=== PATIENT | female | born 1950 | race Caucasian/White ===

== ENCOUNTER → 2017-04-29 | Outpatient (CLI) | payer BC ==
[~2017-04-29] MED LIST: ASPEC81 PO; CLR10 PO; MULT-506 PO
--- NOTE | 2017-04-29 15:21 | DIAGNOSTIC IMAGING REPORT ---
AP STANDING VIEW OF BOTH KNEES; 3 VIEWS RIGHT KNEE CLINICAL HISTORY: Right knee pain. FINDINGS: An AP standing view of both knees with lateral, tunnel, and sunrise views of the right knee are compared to study dated 04/01/2011. The skeletal structures are osteopenic. No fracture is seen. There is only mild tricompartmental degenerative joint space narrowing. No osteochondral defect is seen on the tunnel image. There is no joint effusion. The overlying soft tissues are within normal limits. A 7 mm calcification is seen inferior and medial to the patella. This may represent a joint body. The overlying soft tissues are normal in appearance. Survey images of the left knee on the frontal view show no acute abnormality. IMPRESSION: 1. No acute bony abnormality is seen in the right knee. 2. Osteopenia and minimal degenerative change as above. 3. Question a small calcified joint body. Electronically signed by: Cruzito Nuñez M.D. 04/29/2017 3:20 PM Dictated Date/Time: 04/29/2017 3:13 PM
== END | disposition home or self-care (01) ==
LOC: C.RDSM 11:48
PROVIDERS: ATTEND Internal Medicine
DX: M25.561 Pain in right knee (principal); M85.861 Other specified disorders of bone density and structure, right lower leg

== ENCOUNTER → 2017-05-05 | Outpatient (CLI) | payer BC ==
--- NOTE | 2017-05-05 13:58 | DIAGNOSTIC IMAGING REPORT ---
LEFT KNEE 3 VIEWS CLINICAL HISTORY: Left knee pain. COMPARISON: Knee radiographs April 01, 2011. FINDINGS: Alignment of the left knee is anatomic. There is no fracture, suspicious lesion or joint effusion. There is mild narrowing of the lateral patellofemoral joint space. There is mild arthritis. IMPRESSION: 1. No acute fracture or joint effusion of the left knee. 2. Mild osteoarthritis of the left knee. Electronically signed by: Senthil Covarrubias M.D. 05/05/2017 1:56 PM Dictated Date/Time: 05/05/2017 1:54 PM
== END | disposition home or self-care (01) ==
LOC: C.RDSM 11:56
PROVIDERS: ATTEND Internal Medicine
DX: M25.562 Pain in left knee (principal)

== ENCOUNTER → 2017-05-06 | Outpatient (CLI) | payer BC ==
--- NOTE | 2017-05-06 15:25 | DIAGNOSTIC IMAGING REPORT ---
RIGHT LOWER EXT JOINT WITHOUT CLINICAL HISTORY: 66 years-old Female with chronic right knee pain with loose bodies noted on comparison radiographs. Patient also reports swelling without known injury. COMPARISON: Right knee radiographs 04/29/2017 TECHNIQUE: Multiplanar, multisequence MRI of the right knee was performed without intravenous contrast. FINDINGS: MENISCI: Multidirectional increased T2 signal involves the posterior horn and posterior junction medial meniscus compatible with complex tear with a dominant horizontal undersurface component, nicely seen on image 17 of the coronal T2 series. Mild irregularity extends into the superior articular surface of the medial meniscal body. There is blunting of the free at posterior horn medial meniscus. No displaced fragment or para meniscal cyst is identified. There is blunting of the free edge anterior horn lateral meniscus without discrete tear, displaced fragment or para meniscal cyst seen laterally. CRUCIATE LIGAMENTS: The anterior and posterior cruciate ligaments are normal in signal, morphology and course. COLLATERAL LIGAMENTS: The popliteus tendon, biceps femoris tendon, fibular collateral ligament and iliotibial band are intact. There is mild thickening with intermediate T2 signal involving the proximal fibers of the MCL compatible with grade 2 injury. EXTENSOR MECHANISM: The quadriceps and patellar tendons are intact. The medial and lateral patellar retinacula are intact.a note is made of a medial patellar plica is seen on image 9 of the axial PD series. KNEE JOINT: There is mild medial compartment joint space narrowing with mostly low-grade chondromalacia. Minimal joint space narrowing with low-grade chondromalacia involves the lateral compartment. There is mild low-grade chondral fissuring involving the patellofemoral joint. There is a 6 x 3 x 6 mm immediately T1 and low T2 signal structure superficial to the medial patellofemoral ligament likely correlates with the ossified body on comparison radiographs and is outside the joint space. No intra-articular loose body is identified. There is a small knee joint effusion. BONE MARROW: The bone marrow signal is age appropriate. No fracture, marrow edema, or marrow replacing process. SOFT TISSUES: Small Le's cyst is seen, 2.2 x 3.5 x 8.5 cm. IMPRESSION: 1. Mild tricompartmental osteoarthritis with complex tear of the medial meniscus posterior horn and posterior junction with dominant horizontal undersurface component. No displaced fragment or para meniscal cyst. 2. Mild blunting the free edge anterior horn lateral meniscus without discrete tear identified. 3. Grade 2 injury of the MCL. 4. 6 x 3 x 6 mm ovoid structure superficial to the medial patellofemoral ligament likely correlates with the ossified body seen on comparison radiographs and is outside the joint capsule. No intra-articular loose bodies are identified. The above report was generated using voice recognition software. It may contain grammatical, syntax or spelling errors. Electronically signed by: Skyler Rueda M.D. 05/06/2017 3:24 PM Dictated Date/Time: 05/06/2017 3:00 PM
== END | disposition home or self-care (01) ==
LOC: C.MRI 13:47
PROVIDERS: ATTEND Internal Medicine
DX: S83.231A Complex tear of medial meniscus, current injury, right knee, initial encounter (principal); X58.XXXA Exposure to other specified factors, initial encounter

== ENCOUNTER → 2017-11-27 | Day surgery (SDC) | payer BC ==
[2017-11-26 10:20] VITALS: Ht 149.9 cm; Wt 49.5 kg
[~2017-11-27] VITALS: Ht 149.9 cm; Wt 49.5 kg
[~2017-11-27] MED LIST changes: -ASPEC81 PO; +LIDOCAINE HCL 2% 2 ML VIAL (20MG/ML) ONE; +MISCCAP80 PO; -MULT-506 PO; +PHENYLEPHRINE 100MCG/ML 5ML SYR ONE; +PROPOFOL IV EMULSION 10 MG/ML 20 ML VIAL IV ONE; +SODIUM CHLORIDE 0.9% 500ML 500 ML IV ONE
--- NOTE | 2017-11-27 11:07 | Endo History and Physical ---
History & Physical Date of Service: Nov 27, 2017. Chief Complaint: Screening, bloating and abdominal pain Referring Physician: Venancio Zuluaga History of Present Illness Change in bowel habit, bloating and abdominal pain. Past Surgical History Hx Cardiac Surgery: No Hx Internal Defibrillator: No Hx Pacemaker: No Hx Abdominal Surgery: Yes (TUBAL LIGATION, SAUL) Hx of Implantable Prosthesis: No Hx Post-Op Nausea and Vomiting: No Hx Cancer Surgery: No Hx Thoracic Surgery: No Hx Orthopedic: No Hx Urinary Tract Surgery: No Family History None Social History Smoking Status: Never Smoker Hx Substance Use: No Hx Alcohol Use: Yes (OCCASIONALLY) Allergies Coded Allergies: Codeine (Verified Allergy, Unknown, NAUSEA/VOMITTING, 11/26/17) Iodinated Diagnostic Agents (Verified Allergy, Unknown, ANAPHYLAXIS, ) Iodine (Verified Allergy, Unknown, ANAPHYLAXIS, 11/26/17) Macrolides (Verified Allergy, Unknown, HIVES, 11/26/17) NUTS (Unverified Allergy, Unknown, FACIAL SWELLING WITH RAW NUTS, 11/26/17) Promethazine (Verified Allergy, Unknown, HALLUCINATION, 11/26/17) Quinolones (Verified Allergy, Unknown, ANAPHYLAXIS, 11/26/17) Sulfa Drugs (Verified Allergy, Unknown, HIVES, 11/26/17) Penicillins (Unverified Adverse Reaction, Unknown, SL SWELLING OF FACE, 11/26/17) Uncoded Allergies: SCALLOPS (Allergy, Unknown, ANAPHYLAXIS, 11/26/17) Current Medications Reported Home Medications Medications Dose Route/Sig Max Daily Dose Days Date Category Probiotic (Probiotic Product) 1 Cap Cap 1 Cap PO DAILY 11/26/17 Reported Claritin (Loratadine) 10 Mg Tab 10 Mg PO QAM 11/26/17 Reported Vital Signs Weight (Kilograms): 49.55 Height (Feet): 4 Height (Inches): 11 Date Time Temp Pulse Resp B/P (MAP) Pulse Ox O2 Delivery O2 Flow Rate FiO2 11/27/17 10:43 36.7 97 18 143/89 (107) 96 Room Air Physical Exam General Appearance: WD/WN, no apparent distress Respiratory/Chest: Auscultation: breath sounds normal, no wheezing Cardiovascular: Heart Auscultation: RRR, no murmurs Abdomen: Inspection & Palpation: soft, no tenderness, guarding & rebound Assessment and Plan Colonoscopy today.
--- NOTE | 2017-11-27 11:55 | GI REPORT ---
Procedure Date: 11/27/2017 11:11 AM Procedure: Colonoscopy Indications: Screening for colorectal malignant neoplasm, Incidental - Abdominal pain, Incidental - Change in bowel habits Medicines: Monitored Anesthesia Care Complications: No immediate complications. Estimated blood loss: None. Estimated Blood Loss: Estimated blood loss: none. Procedure: Pre-Anesthesia Assessment: - Prior to the procedure, a History and Physical was performed, and patient medications, allergies and sensitivities were reviewed. The patient's tolerance of previous anesthesia was reviewed. - ASA Grade Assessment: II - A patient with mild systemic disease. After I obtained informed consent, the scope was passed under direct vision. Throughout the procedure, the patient's blood pressure, pulse, and oxygen saturations were monitored continuously. The scope was introduced through the anus and advanced to the terminal ileum, with identification of the appendiceal orifice and IC valve. The colonoscopy was performed with ease. The patient tolerated the procedure well. The quality of the bowel preparation was excellent. The bowel preparation used was split dose MIralax. Findings: The colon (entire examined portion) appeared normal. Biopsies for histology were taken with a cold forceps from the entire colon for evaluation of microscopic colitis. Fluid aspiration for bacterial cultures, Clostridium difficile and ova and parasites was performed. Verification of patient identification for the specimens was done by the physician and nurse using the patient's name, date and medical record number. Impression: - The entire examined colon is normal to the terminal ileum with retroflexed views of the ascending colon and rectum. Biopsied. Fluid aspiration performed. Recommendation: - Await pathology results. - Discharge patient to home (with escort). - Repeat colonoscopy in 10 years for screening purposes. Juan Antonio Qiu M.D. Juan Antonio Qiu MD 11/27/2017 11:55:07 AM This report has been signed electronically. Note Initiated On: 11/27/2017 11:11 AM I attest to the content of the Intraoperative Record and orders documented therein, exceptions below
--- NOTE | 2017-11-27 11:56 | Discharge Instructions ---
Endoscopy Patient Instructions Date / Procedure(s) Performed Nov 27, 2017. Colonoscopy Allergy Information Coded Allergies: Codeine (Verified Allergy, Unknown, NAUSEA/VOMITTING, 11/26/17) Iodinated Diagnostic Agents (Verified Allergy, Unknown, ANAPHYLAXIS, ) Iodine (Verified Allergy, Unknown, ANAPHYLAXIS, 11/26/17) Macrolides (Verified Allergy, Unknown, HIVES, 11/26/17) NUTS (Unverified Allergy, Unknown, FACIAL SWELLING WITH RAW NUTS, 11/26/17) Promethazine (Verified Allergy, Unknown, HALLUCINATION, 11/26/17) Quinolones (Verified Allergy, Unknown, ANAPHYLAXIS, 11/26/17) Sulfa Drugs (Verified Allergy, Unknown, HIVES, 11/26/17) Penicillins (Unverified Adverse Reaction, Unknown, SL SWELLING OF FACE, 11/26/17) Uncoded Allergies: SCALLOPS (Allergy, Unknown, ANAPHYLAXIS, 11/26/17) Discharge Date / Findings Nov 27, 2017. Normal colon. Biopsies and cultures pending. Medication Instructions Restart Stopped Medication(s): Resume all medications today. Provider Instructions Activity Restrictions - No exercising or heavy lifting for 24 hours. - Do not drink alcohol the day of the procedure. - Do not drive a car or operate machinery until the day after the procedure. - Do not make any important decisions or sign important papers in 24 hours after the procedure. Following Day: - Return to full activity which may include returning to work/school. Diet Start your diet with liquids and light foods (jello, soup, juice, toast). Then eat your usual diet if not nauseated. Treatment For Common After Affects For mild abdominal pain, bloating, or excessive gas: - Rest - Eat lightly - Lie on right side Follow-Up Information Follow-up with Venancio Zuluaga as scheduled Anesthesia Information What You Should Know You have had a procedure that required some medicine to reduce anxiety and discomfort. This treatment is called moderate sedation. After receiving the treatment, you may be sleepy, but you will be able to breathe on your own. The effects of the treatment may last for several hours. Follow these instructions along with Activity/Diet recommendations noted above: * Do NOT do anything where dizziness or clumsiness would be dangerous. * Rest quietly at home today, then you can be up and about tomorrow. * Have a responsible person stay with you the rest of today. * You may have had an I.V. today. If so, you may take the dressing off later today. Recommendations Call your doctor if: * Trouble breathing * Continuous vomiting for more than 24 hours * Temperature above 101 degrees * Severe abdominal pain or bloating * Pain not relieved by pain medicine ordered * There is increased drainage or redness from any incision * A large amount of rectal bleeding greater than 2-3 tablespoons. (If you had a polyp/s removed or have hemorrhoids, a small amount of blood - from the rectum is to be expected.) * You have any unanswered questions or concerns. IN THE EVENT OF A SERIOUS EMERGENCY, GO TO THE NEAREST EMERGENCY ROOM Your discharge instructions were prepared by provider Juan Antonio Qiu. Patient Instructions Signature Page Reina Amezquita Patient (or Guardian) Signature/Date: I have read and understand the instructions given to me by my caregivers. Caregiver/RN/Doctor Signature/Date: The above-named patient and/or guardian has received patient instructions on this date. + Original Patient Signature Page (only) stays with chart. Please make copy for patient.
--- NOTE | 2017-11-27 12:11 | Anesthesiology Progress Note ---
Anesthesia Post Op Note Date & Time Nov 27, 2017 at 12:11 Vital Signs Pain Intensity: 0 Vital Signs Past 12 Hours Date Time Temp Pulse Resp B/P (MAP) Pulse Ox O2 Delivery O2 Flow Rate FiO2 11/27/17 12:00 97 18 117/58 (77) 99 Room Air 11/27/17 11:45 36.2 97 16 112/65 (81) 99 Room Air 11/27/17 10:43 36.7 97 18 143/89 (107) 96 Room Air Notes Mental Status: alert / awake / arousable, participated in evaluation Pt Amnestic to Procedure: Yes Nausea / Vomiting: adequately controlled Pain: adequately controlled Airway Patency, RR, SpO2: stable & adequate BP & HR: stable & adequate Hydration State: stable & adequate Anesthetic Complications: no major complications apparent
[2017-11-27 12:14] VITALS: BP 100/64; PULSE 78; O2SAT 94
== END | disposition home or self-care (01) ==
LOC: C.GI 10:02
PROVIDERS: ATTEND Internal Medicine Gastroenterology
DX: Z12.11 Encounter for screening for malignant neoplasm of colon (principal); R10.9 Unspecified abdominal pain; R14.0 Abdominal distension (gaseous); K21.9 Gastro-esophageal reflux disease without esophagitis; Z88.5 Allergy status to narcotic agent; Z91.041 Radiographic dye allergy status; Z88.2 Allergy status to sulfonamides; Z88.0 Allergy status to penicillin; Z91.018 Allergy to other foods; Z90.49 Acquired absence of other specified parts of digestive tract; Z91.013 Allergy to seafood